=== PATIENT | female | born 1995 | race Caucasian/White ===

== ENCOUNTER 2025-04-01 13:04 | Emergency (ER) | payer MEDICAID, SELFPAY ==
[2025-04-01 13:05] VITALS: BP 135/102; PULSE 90; RESP 16; TEMP 36.8; O2SAT 98; BMI 31.3
--- NOTE | 2025-04-01 13:27 | EDS_ITS ---
HPI History of Present Illness Chief Complaint: Substance Abuse Informant: patient Onset/Context/Timing Onset: Weeks Context: Gradual Onset Timing: Continuous Current Severity: Mild Maximum Severity: Mild Associated Symptoms Associated Symptoms: Positive for vomiting* Narrative Narrative: 30-year-old female has been using something called 7 tabs. It appears to be kratom. She is been using about 15 pills a day. Stopped using 24 hours ago. She has been having restless legs, anxiety and intermittent nausea and vomiting. Loose stools. No fever. No abdominal pain. She does not want to be admitted for detox. She is looking for medication help with her symptoms. She is going to follow-up with the outpatient detox unit in [place] on Thursday. Prior similar symptoms: Yes Recent Illness/Hospitalization: No PFSH PFSH Home Medications ?Medication ?Instructions ?Recorded ?Last Taken ?Type lorazepam 1 mg tablet (Ativan) 1 mg PO BID PRN anxiety #6 tabs 04/01/25 Unknown Rx ondansetron 4 mg disintegrating 4 mg PO Q6H PRN nausea and 04/01/25 Unknown Rx tablet vomiting #7 tabs Allergy/AdvReac Type Severity Reaction Status Date / Time latex Allergy rash Verified 04/01/25 13:08 Penicillins Allergy Anaphylaxis Verified 04/01/25 13:07 diphenhydramine (From AdvReac restless Verified 04/01/25 13:08 Benadryl) legs Social History Smoking Status: Never smoker ROS ROS ED ROS Narrative Nausea. Restless legs. Diarrhea. Constitutional Constitutional ED: Denies chills or fever(s) Eyes Eyes: Denies blurry vision ENT ENT ED: Denies ear pain Cardiovascular Cardiovascular: Denies chest pain Respiratory/Chest Respiratory/Chest: Denies cough or dyspnea Gastrointestinal Gastrointestinal: Reports diarrhea, nausea and vomiting; Denies abdominal pain Genitourinary Genitourinary ED: Denies dysuria Musculoskeletal Musculoskeletal: Denies arthralgias Integumentary Denies abscess Neurologic Neurologic: Denies headache(s) Psychiatric Psychiatric: Reports anxiety Endocrine Endocrinology: Denies cold intolerance Hematologic/Lymphatic Hematologic/Lymphatic: Denies easy bleeding or lymphadenopathy Allergic/Immunologic Allergic/Immunologic ED: Denies mouth swelling, tongue swelling or urticaria EXAM Physical Exam Narrative Exam Narrative: 30-year-old female sitting upright in bed vital signs are stable afebrile. She does not look septic or toxic. She is very anxious. H EENT exam pupils round react to light. Moist mutes membranes. Multiple piercings of her tongue. Neck nontender no lymphadenopathy. Back nontender. Lungs clear to auscultation bilaterally. Heart regular rate and rhythm rate about 90 no murmur. Chest wall ribs nontender. Abdomen soft nontender. Moving all 4 extremities. Normal customer resource specialist strength. Normal dorsi plantarflexion. Normal range of motion. Normal strength and sensation. Nontender no edema. Neurologically she is awake alert. Answer questions following commands. No focal motor deficits. NIH 0. She is very anxious. Const Vital Signs: 04/01/25 13:05 Temperature 98.3 F Temperature Source Oral Pulse Rate 90 Respiratory Rate 16 Blood Pressure 135/102 H Blood Pressure Mean 113 Pulse Ox 98 Oxygen Delivery Method Room Air MDM MDM MDM Narrative Medical decision making narrative: 30-year-old female withdrawal from kratom use. Will be given Zofran for nausea and Ativan for anxiety and reassess. Repeat exam patient is doing well at 2:58 PM. Looks more comfortable feeling better. To be discharged home with Zofran for nausea. Limited Ativan for anxiety. Follow-up with outpatient detox center in [place]. History & Record Review Discussion w/independent historian: Patient Additional record(s) reviewed:: No prior records Discharge Plan Triage Chief Complaint: Substance Abuse ED Provider: Red Duran Dx/Rx/DC Orders Clinical Impression: Drug abuse, Nausea, Anxiety Instructions: ED Drug Abuse Prescriptions: New ondansetron 4 mg tablet,disintegrating 4 mg PO Q6H PRN (Reason: nausea and vomiting) Qty: 7 0RF lorazepam [Ativan] 1 mg tablet 1 mg PO BID PRN (Reason: anxiety) Qty: 6 0RF Primary Care Provider: Saurabh Veliz Jr. Referrals: NOT,DEFINED [Non-Staff, None] Activity Restrictions/Additional Instructions: Zofran as needed for nausea. Ativan as needed for anxiety. Call and follow-up with that detox center in [place] on Thursday. Print Language: Citizen Of [place] Disposition Disposition: Home, Self Care
--- OUTSIDE RECORDS SUMMARY | 2025-04-01 13:37 | XMS RPT_ITS | CCD ---
Author Organization [facility] Care Team Providers Care Technical Report Writer Name Role Phone Generic Provider MD, No Assigned Pcp Primary Car e Provider Unavailable GENERIC PROVIDER, NO ASSIGNED PCP Primary Care Unavailable GENERIC PROVIDER, NO ASSIGNED PCP Primary Care Unavailable KEY GUERRERO Attending Unavailable Allergies Allergy Classification Reported Allergen(s) Allergy Type Date of Onset Reaction(s) Facility (4 sources) diphenhydrAMINE ; Translations: [DIPHENHYDRAMIN E HCL] Drug Allergy 4 Rash, Agitation [facility] (4 sources) Latex; Translations: [LATEX] Propensity to adverse reactions 4 Rash [facility] Work Phone: (4 sources) Metoclopramide; Translations: [METOCLOPRAMIDE HCL] Drug Allergy 4 Agitation [facility] Work Phone: (4 sources) Penicillins; Translations: [PENICILLINS] Propensity to adverse reactions 4 Anaphylaxis, Swelling [facility] Work Phone: Medications Current Medications Medication Drug Class(es) Dates Sig (Normalized) Sig (Original) acetaminophen 325 mg / oxyCODONE hydrochloride 5 mg oral tablet (2 sources) Opioid Agonist Start: 02-26-2024 take 1 tablet by mouth every six hours for pain oxyCODONE-acetami nophen (Percocet) 5-325 mg tablet Indications: Cervical strain, acute, initial encounter Take 1 tablet by mouth every 6 hours if needed for severe pain (7 - 10). 12 tablet 02/26/2024 Active Completed/Discontinued Medications Medication Drug Class(es) Dates Sig (Normalized) Sig (Original) 1 ml HYDROmorphone hydrochloride 1 mg/ml cartridge (1 source) Opioid Agonist Start: 02-25-2024 End: 02-25-2024 inject 1 mg by intramuscular injection once 1 mg, intramuscular, Once, On Brooke 02/25/24 at 2310, For 1 dose 1 ml ketorolac tromethamine 30 mg/ml injection (1 source) Nonsteroidal Anti-inflammatory Drug, Cyclooxygenase Inhibitor Start: 02-15-2024 End: 02-15-2024 15 mg, intravenous, Once, On Thu02/15/24 at 1935, For 1 dose ondansetron 4 mg disintegrating oral tablet (1 source) Serotonin-3 Receptor Antagonist Start: 02-15-2024 End: 02-15-2024 take 4 mg by mouth once 4 mg, oral, Once, On Thu02/15/24 at 1910, For 1 dose 2 ml orphenadrine citrate 30 mg/ml injection (1 source) Muscle Relaxant Start: 02-25-2024 End: 02-25-2024 inject 60 mg by intramuscular injection once 60 mg, intramuscular, Once, On Brooke 02/25/24 at 2310, For 1 dose Problems Problem Classification Problem Date Documented Da te Episodic/Chronic Headache; including migraine (1 source) Headache; Translations: [Nonintractable headache, unspecified chronicity pattern, unspecified headache type] 02-15-2024 Episodic Headache; including migraine (2 sources) Headache; including migraine; Translations: [Headache, unspecified] Onset: 02-15-2024 Sprains and strains (3 sources) Strain of neck muscle; Translations: [Strain of muscle, fascia and tendon at neck level, initial encounter] Onset: 02-25-2024 02-26-2024 Episodic Results Test Name Value Interpretation Reference Range Facility XR Cervical spine 2 or 3 Vie wson 02-26-2024 No evidence of traumatic subluxation or compression deformity. Faint ossifications along the lower vertebral bodies could be related to early degenerative changes or remote trauma. Clinical correlation suggested. MACRO: None Signed by: Amita Nugent 02/26/2024 12:11 AM Dictation workstation: [id number] [facility] Interpreted By: Amita Nugent, STUDY: XR CERVICAL SPINE 2-3 VIEWS; ; 02/25/2024 11:24 pm INDICATION: Signs/Symptoms:Right- sided neck pain. COMPARISON: None. ACCESSION NUMBER(S): [id number] ORDERING CLINICIAN: KEY GUERRERO FINDINGS: Three views of the cervical spine Straightening of the cervical spine. No evidence of traumatic subluxation identified. Punctate ossification along the anterior superior C6 and C7 vertebral bodies which are indeterminate. No significant prevertebral soft tissue swelling. Airways appear patent. Lung apices appear clear. [facility] Amita Nugent D O - 02/26/2024 Interpreted By: Amita Nugent, STUDY: XR CERVICAL SPINE 2-3 VIEWS; ; 02/25/2024 11:24 pm INDICATION: Signs/Symptoms:Right- sided neck pain. COMPARISON: None. ACCESSION NUMBER(S): [id number] ORDERING CLINICIAN: KEY GUERRERO FINDINGS: Three views of the cervical spine Straightening of the cervical spine. No evidence of traumatic subluxation identified. Punctate ossification along the anterior superior C6 and C7 vertebral bodies which are indeterminate. No significant prevertebral soft tissue swelling. Airways appear patent. Lung apices appear clear. IMPRESSION: No evidence of traumatic subluxation or compression deformity. Faint ossifications along the lower vertebral bodies could be related to early degenerative changes or remote trauma. Clinical correlation suggested. MACRO: None Signed by: Amita Nugent 02/26/2024 12:11 AM Dictation workstation: [id number] [facility] Work Phone: XR Cervical spine 2 or 3 Vie wsOrdered By: Amita Nugent on 02-26-2024 [facility] Work Phone: XR CERVICAL SPINE 2-3 VIEWSo n 02-25-2024 XR CERVICAL SPINE 2-3 VIEWS Interpreted By: Amita Nugent, STUDY: XR CERVICAL SPINE 2-3 VIEWS; ; 02/25/2024 11:24 pm INDICATION: Signs/Symptoms:Right- sided neck pain. COMPARISON: None. ACCESSION NUMBER(S): [id number] ORDERING CLINICIAN: KEY GUERRERO FINDINGS: Three views of the cervical spine Straightening of the cervical spine. No evidence of traumatic subluxation identified. Punctate ossification along the anterior superior C6 and C7 vertebral bodies which are indeterminate. No significant prevertebral soft tissue swelling. Airways appear patent. Lung apices appear clear. IMPRESSION: No evidence of traumatic subluxation or compression deformity. Faint ossifications along the lower vertebral bodies could be related to early degenerative changes or remote trauma. Clinical correlation suggested. MACRO: None Signed by: Amita Nugent 02/26/2024 12:11 AM Dictation workstation: [id number] Normal [facility] XR Cervical spine 2 or 3 Vie wson 02-25-2024 Radiology Study observation (narrative) [facility] Work Phone: CBC panel Auto (Bld)on 02-14 Erythrocyte distribution width (RBC) [Ratio] 12.4 % 11.5 - 14.5 % [facility] Hematocrit (Bld) [Volume fraction] 40.9 % 36.0 - 46.0 % [facility] Hemoglobin (Bld) [Mass/Vol] 14.2 g/dL 12.0 - 16.0 g/dL [facility] Interpretation and review of laboratory results Normal [facility] MCH (RBC) [Entitic mass] 31.6 pg 26.0 - 34.0 pg [facility] MCHC (RBC) [Mass/Vol] 34.7 g/dL 32.0 - 36.0 g/dL [facility] MCV (RBC) [Entitic vol] 91 fL 80 - 100 fL [facility] Nucleated RBC/100 WBC (Bld) [Ratio] 0 % [facility] Platelets (Bld) [#/Vol] 261 10*3/uL [facility] RBC (Bld) [#/Vol] 4.49 10*6/uL [facility] WBC (Bld) [#/Vol] 10.2 10*3/uL [facility] Erythrocyte distribution width (RBC) [Ratio] 12.4 % Normal 11.5-14.5 [facility] Comment on above: Performed By: #### 5 8410-2 #### HILLMAN ROLAND ([id number]) [facility] ([facility]) [address] [place] [address] Hematocrit (Bld) [Volume fraction] 40.9 % Normal 36.0-46.0 [facility] Comment on above: Performed By: #### 5 8410-2 #### RAFY WATKINS ([id number]) [facility] ([facility]) [address] [place] [address] 33858 Hemoglobin (Bld) [Mass/Vol] 14.2 g/dL Normal 12.0-16.0 [facility] Comment on above: Performed By: #### 5 8410-2 #### RAFY WATKINS ([id number]) [facility] ([facility]) [address] [place] [address] 07368 MCH (RBC) [Entitic mass] 31.6 pg Normal 26.0-34.0 [facility] Comment on above: Performed By: #### 5 8410-2 #### RAFY WATKINS ([id number]) [facility] ([facility]) [address] [place] [address] 91857 MCHC (RBC) [Mass/Vol] 34.7 g/dL Normal 32.0-36.0 [facility] Comment on above: Performed By: #### 5 8410-2 #### RAFY WATKINS ([id number]) [facility] ([facility]) [address] [place] [address] 31462 MCV (RBC) [Entitic vol] 91 fL Normal 80-100 [facility] Comment on above: Performed By: #### 5 8410-2 #### RAFY WATKINS ([id number]) [facility] ([facility]) [address] [place] [address] 06325 Nucleated RBC/100 WBC (Bld) [Ratio] 0.0 /100 WBCs Normal 0.0-0.0 [facility] Comment on above: Performed By: #### 5 8410-2 #### RAFY WATKINS ([id number]) [facility] ([facility]) [address] [place] [address] 31072 Platelets (Bld) [#/Vol] 261 x10*3/uL Normal 150-450 [facility] Comment on above: Performed By: #### 5 8410-2 #### RAFY WATKINS ([id number]) [facility] ([facility]) [facility] [place] [address] RBC (Bld) [#/Vol] 4.49 x10*6/uL Normal 4.00-5.[address] [facility] Comment on above: Performed By: #### 5 8410-2 #### RAFY WATKINS ([id number]) [facility] ([facility]) [address] [place] [address] 68200 WBC (Bld) [#/Vol] 10.2 x10*3/uL Normal 4.4-11.[address] [facility] Comment on above: Performed By: #### 5 8410-2 #### RAFY WATKINS ([id number]) [facility] ([facility]) [address] [place], [place] [id number] Comprehensive metabolic 2000 panelon 02-15-2024 Albumin BCP dye [Mass/Vol] 4.3 g/dL 3.4 - 5.0 g/dL [facility] ALP [Catalytic activity/Vol] 63 U/L 33 - 110 U/L [facility] ALT With P-5'-P [Catalytic activity/Vol] 17 U/L 7 - 45 U/L [facility] Comment on above: Patients treated wit h Sulfasalazine may generate falsely decreased results for ALT. Anion gap [Moles/Vol] 13 mmol/L 10 - 20 mmol/L [facility] AST With P-5'-P [Catalytic activity/Vol] 14 U/L 9 - 39 U/L [facility] Bilirubin [Mass/Vol] 0.4 mg/dL 0.0 - 1 .2 mg/dL [facility] Calcium [Mass/Vol] 9.6 mg/dL 8.6 - 10. 3 mg/dL [facility] Chloride [Moles/Vol] 101 mmol/L 98 - 10 7 mmol/L [facility] CO2 [Moles/Vol] 28 mmol/L 21 - 32 mmol/L [facility] Creatinine [Mass/Vol] 0.77 mg/dL 0.50 - 1.05 mg/dL [facility] eGFR - PINF [facility] Comment on above: Calculations of maki mated GFR are performed using the 2020 CKD-EPI Study Refit equation without the race variable for the IDMS-Traceable creatinine methods. https://jasn.asnjournals.org/content//ASN.6442494 988 Glucose [Mass/Vol] 97 mg/dL 74 - 99 mg/dL [facility] Interpretation and review of laboratory results Normal [facility] Potassium [Moles/Vol] 3.6 mmol/L 3.5 - 5.3 mmol/L [facility] Protein [Mass/Vol] 6.9 g/dL 6.4 - 8.2 g/dL Un [facility] Sodium [Moles/Vol] 138 mmol/L 136 - 145 mmol/L [facility] Urea nitrogen [Mass/Vol] 16 mg/dL 6 - 23 mg/dL [facility] Albumin BCP dye [Mass/Vol] 4.3 g/dL Normal 3.4-5.0 [facility] Comment on above: Performed By: #### 2 4323-8 #### RAFY WATKINS ([id number]) [facility] ([facility]) [address] [place] [address]141 ALP [Catalytic activity/Vol] 63 U/L Normal 33-110 [facility] Comment on above: Performed By: #### 2 4323-8 #### RAFY WATKINS ([id number]) [facility] ([facility]) [address] [place] [address] 25785 ALT With P-5'-P [Catalytic activity/Vol] 17 U/L Normal 7-45 [facility] Comment on above: Result Comment: Laura ents treated with Sulfasalazine may generate falsely decreased results for ALT. Performed By: #### 2 4323-8 #### RAFY WATKINS ([id number]) [facility] ([facility]) [address] [place] [address] 10768 Anion gap [Moles/Vol] 13 mmol/L Normal 10-20 [facility] Comment on above: Performed By: #### 2 4323-8 #### RAFY WATKINS ([id number]) [facility] ([facility]) [address] [place] [address] AST With P-5'-P [Catalytic activity/Vol] 14 U/L Normal 9-39 [facility] Comment on above: Performed By: #### 2 4323-8 #### RAFY WATKINS ([id number]) [facility] ([facility]) [address] [place] [address] Bilirubin [Mass/Vol] 0.4 mg/dL Normal 0.0-1.[address] [facility] Comment on above: Performed By: #### 2 432-8 #### RAFY WATKINS ([id number]) [facility] ([facility]) [address] [place] [address] Calcium [Mass/Vol] 9.6 mg/dL Normal 8.6-10.3 [facility] Comment on above: Performed By: #### 2 432-8 #### RAFY WATKINS ([id number]) [facility] ([facility]) [address] [place] [address] Chloride [Moles/Vol] 101 mmol/L Normal 98-[address] [facility] Comment on above: Performed By: #### 2 4323-8 #### RAFY WATKINS ([id number]) [facility] ([facility]) [address] [place] [address] CO2 [Moles/Vol] 28 mmol/L Normal 21-32 [facility] Comment on above: Performed By: #### 2 4323-8 #### RAFY WATKINS ([id number]) [facility] ([facility]) [address] [place] [address] Creatinine [Mass/Vol] 0.77 mg/dL Normal 0.50-1.05 [facility] Comment on above: Performed By: #### 2 4323-8 #### RAFY WATKINS ([id number]) [facility] ([facility]) [address] [place] [address] GFR/1.73 sq M.predicted MDRD (S/P/Bld) [Vol rate/Area] mL/min/{1.73_m2} Normal >60 [facility] Comment on above: Result Comment: Calc ulations of estimated GFR are performed using the 2020 CKD-EPI Study Refit equation without the race variable for the IDMS-Traceable creatinine methods. https://jasn.asnjournals.org/content/early//ASN.8015875 988 Performed By: #### 2 4323-8 #### RAFY WATKINS ([id number]) [facility] ([facility]) [address] [place] [address]116 Glucose [Mass/Vol] 97 mg/dL Normal 74-99 [facility] Comment on above: Performed By: #### 2 4323-8 #### RAFY WATKINS ([id number]) [facility] ([facility]) [address] [place] [address] 09069 Potassium [Moles/Vol] 3.6 mmol/L Normal 3.5-5.3 [facility] Comment on above: Performed By: #### 2 4323-8 #### RAFY WATKINS ([id number]) [facility] ([facility]) [address] [place] [address] 01092 Protein [Mass/Vol] 6.9 g/dL Normal 6.4-8.2 [facility] Comment on above: Performed By: #### 2 4323-8 #### RAFY WATKINS ([id number]) [facility] ([facility]) [address] [place] [address]2310 Sodium [Moles/Vol] 138 mmol/L Normal 136-145 [facility] Comment on above: Performed By: #### 2 4323-8 #### RAFY WATKINS ([id number]) [facility] ([facility]) [address] [place] [address] 35688 Urea nitrogen [Mass/Vol] 16 mg/dL Normal 6-23 [facility] Comment on above: Performed By: #### 2 4323-8 #### RAFY WATKINS ([id number]) [facility] ([facility]) [address] [place] [address] FLUAV and FLUBV RNA MELISSA+prob e Nom (Unsp spec)on 02-15-2024 FLUAV RNA MELISSA+probe Ql (Resp) Not detected Not Detected [facility] FLUBV RNA MELISSA+probe Ql (Resp) Not detected Not Detected [facility] This assay is an in vitro diagnostic multiplex nucleic acid amplification test for the detection and discrimination of Influenza A & B from nasopharyngeal specimens, and has been validated for use at [facility]. Negative results do not preclude Influenza A/B infections, and should not be used as the sole basis for diagnosis, treatment, or other management decisions. If Influenza A/B and RSV PCR results are negative, testing for Parainfluenza virus, Adenovirus and Metapneumovirus is routinely performed for [facility] pediatric oncology and intensive care inpatients, and is available on other patients by placing an add-on request. [facility] FLUAV RNA MELISSA+probe Ql (Resp) Not detected Normal Not Detected [facility] Comment on above: Order Comment: This assay is an in vitro diagnostic multiplex nucleic acid amplification test for the detection and discrimination of Influenza A & B from nasopharyngeal specimens, and has been validated for use at [facility]. Negative results do not preclude Influenza A/B infections, and should not be used as the sole basis for diagnosis, treatment, or other management decisions. If Influenza A/B and RSV PCR results are negative, testing for Parainfluenza virus, Adenovirus and Metapneumovirus is routinely performed for [facility] pediatric oncology and intensive care inpatients, and is available on other patients by placing an add-on request. Performed By: #### 4 8509-4 #### HILLMAN ROLAND ([id number]) [facility] ([facility]) [address] [place] [address] FLUBV RNA MELISSA+probe Ql (Resp) Not detected Normal Not Detected [facility] Comment on above: Order Comment: This assay is an in vitro diagnostic multiplex nucleic acid amplification test for the detection and discrimination of Influenza A & B from nasopharyngeal specimens, and has been validated for use at [facility]. Negative results do not preclude Influenza A/B infections, and should not be used as the sole basis for diagnosis, treatment, or other management decisions. If Influenza A/B and RSV PCR results are negative, testing for Parainfluenza virus, Adenovirus and Metapneumovirus is routinely performed for [facility] pediatric oncology and intensive care inpatients, and is available on other patients by placing an add-on request. Performed By: #### 4 8509-4 #### RAFY WATKINS ([id number]) [facility] ([facility]) [address] [place] [address] No Panel Informationon 02-14 Interpretation and review of laboratory results Normal [facility] SARS coronavirus 2 RNAon SARS-CoV-2 (COVID-19) RNA MELISSA+probe Ql (Resp) Not detected Normal Not Detected [facility] Comment on above: Order Comment: This assay has received FDA Emergency Use Authorization (EUA) and is only authorized for the duration of time that circumstances exist to justify the authorization of the emergency use of in vitro diagnostic tests for the detection of SARS-CoV-2 virus and/or diagnosis of COVID-19 infection under section 564(b)(1) of the Act, 21 U.S.C. 360bbb-3(b)(1). This assay is an in vitro diagnostic nucleic acid amplification test for the qualitative detection of SARS-CoV-2 from nasopharyngeal specimens and has been validated for use at [facility]. Negative results do not preclude COVID-19 infections and should not be used as the sole basis for diagnosis, treatment, or other management decisions. Performed By: #### 9 4500-6 #### RAFY WATKINS ([id number]) [facility] ([facility]) [address] [place] [address] SARS-CoV-2 (COVID-19) RNA NA A+probe Ql (Resp)on 02-15-2024 This assay has received FDA Emergency Use Authorization (EUA) and is only authorized for the duration of time that circumstances exist to justify the authorization of the emergency use of in vitro diagnostic tests for the detection of SARS-CoV-2 virus and/or diagnosis of COVID-19 infection under section 564(b)(1) of the Act, 21 U.S.C. 360bbb-3(b)(1). This assay is an in vitro diagnostic nucleic acid amplification test for the qualitative detection of SARS-CoV-2 from nasopharyngeal specimens and has been validated for use at [facility]. Negative results do not preclude COVID-19 infections and should not be used as the sole basis for diagnosis, treatment, or other management decisions. [facility] Sars-CoV-2 PCRon 02-15-2024 SARS-CoV-2 (COVID-19) RNA MELISSA+probe Ql (Resp) Not detected Not Detected [facility] Vital Signs Date Time Vital Sign Value Performing Clinician Facility 03-17-2024 13:47-0500 Respiratory rate 16 /min Donna Fritztravon SIMON-PROSTHETIC TECHNICIAN Work Phone: [facility] 02-26-2024 00:22-0500 Diastolic blood pressure 72 mm[Hg] Key Guerrero MD Work Phone: [facility] 02-26-2024 00:22-0500 Heart rate 80 /min Key Guerrero MD Work Phone: [facility] 02-26-2024 00:22-0500 Respiratory rate 16 /min Key Guerrero MD Work Phone: [facility] 02-26-2024 00:22-0500 SaO2% (BldA) [Mass fraction] 97 % Key Guerrero MD Work Phone: [facility] 02-26-2024 00:22-0500 Systolic blood pressure 169 mm[Hg] Key Guerrero MD Work Phone: [facility] 02-25-2024 22:31-0500 Body height 170.2 cm Key Guerrero MD Work Phone: [facility] 02-25-2024 22:31-0500 Body mass index (BMI) [Ratio] 24.28 kg/m2 Key Guerrero MD Work Phone: [facility] 02-25-2024 22:31-0500 Body temperature 96.8 [degF] Key Guerrero MD Work Phone: [facility] 02-25-2024 22:31-0500 Body weight 70.31 kg Key Guerrero MD Work Phone: [facility] 02-15-2024 20:26-0500 Diastolic blood pressure 75 mm[Hg] No Generic Provider [facility] 02-15-2024 20:26-0500 Heart rate 94 /min No Generic Provider [facility] 02-15-2024 20:26-0500 Respiratory rate 18 /min No Generic Provider [facility] 02-15-2024 20:26-0500 SaO2% (BldA) [Mass fraction] 100 % No Generic Provider [facility] 02-15-2024 20:26-0500 Systolic blood pressure 130 mm[Hg] No Generic Provider [facility] 02-15-2024 19:00-0500 Body temperature 99.61 [degF] No Generic Provider [facility] 02-15-2024 18:36-0500 Body height 170.2 cm No Generic Provider [facility] 02-15-2024 18:36-0500 Body mass index (BMI) [Ratio] 24.9 kg/m2 No Generic Provider [facility] 02-15-2024 18:36-0500 Body weight 72.12 kg No Generic Provider [facility] Encounters Encounter Date Encounter Type Care Provider Facility Start: 03-17-2024 End: 03-17-2024 Erroneous Encounter Donna Hu MULTIPLE RESAW OPERATOR-PROSTHETIC TECHNICIAN Work Phone: [facility] Comment on above: Arrived Start: 02-25-2024 End: 02-26-2024 Emergency department patient visit Key Guerrero MD Work Phone: [facility] Comment on above: Cervical strain, acu te, initial encounter (Primary Dx) Start: 02-15-2024 End: 02-15-2024 Emergency department patient visit NO ASSIGNED PCP GENERIC PROVIDER [facility] Comment on above: Nonintractable heada luis, unspecified chronicity pattern, unspecified headache type (Primary Dx) Procedures Date Procedure Procedure Detail Performing Clinician Start: 02-25-2024 Radex spine cervical 2 or 3 views Key Guerrero MD Work Phone: Start: 02-15-2024 Comprehensive metabo lic panel Tana Dillon PA-C Work Phone: Start: 02-15-2024 Influenza virus A an d B RNA [Identifier] in Unspecified specimen by MELISSA with probe detection Tana Dillon PA-C Work Phone: Start: 02-15-2024 SARS-CoV-2 (COVID-19 ) RNA [Presence] in Respiratory specimen by MELISSA with probe detection Tana Dillon PA-C Work Phone: Plan of Treatment Date Care Activity Detail Author Start: 2044 Zoster Vaccines (1 of 2) Zoster Vaccines (1 of 2) [facility] Start: 12-06-2023 COVID-19 Vaccine ( season) COVID-19 Vaccine ( season) [facility] Start: 12-06-2023 Influenza vaccination Influenza Vaccine (#1) [facility] Start: 2016 DTaP/Tdap/Td Vaccines (1 - Tdap) DTaP/Tdap/Td Vaccines (1 - Tdap) [facility] Start: 2013 Hepatitis B Vaccines (1 of 3 - 19+ 3-dose series) Hepatitis B Vaccines (1 of 3 - 19+ 3-dose series) [facility] Start: 2012 Hepatitis C screening Hepatitis C Screening [facility] Start: 2007 Varicella vaccination Varicella Vaccines (1 of 2 - 13+ 2-dose series) [facility] Start: 2000 Pneumococcal Vaccine: Pediatrics (0 to 5 Years) and At-Risk Patients (6 to 64 Years) (1 of 2 - PCV) Pneumococcal Vaccine: Pediatrics (0 to 5 Years) and At-Risk Patients (6 to 64 Years) (1 of 2 - PCV) [facility] Start: 1995 MMR Vaccines (1 of 1 - Standard series) MMR Vaccines (1 of 1 - Standard series) [facility] Start: 1994 HIV screening HIV Screening [facility] Start: 1994 Lipid panel Lipid Panel [facility] Start: 1994 Yearly Adult Physical Yearly Adult Physical [facility] Payers Date Payer Category Payer Medicaid MEDICAID NON [place] [id number] Social History Date Type Detail Facility Start: 02-15-2024 [facility] Work Phone: History of tobacco use Cigarette Smoker [facility] Work Phone: Start: 02-15-2024 Tobacco use and exposure Smokeless tobacco non-user [facility] Work Phone: Start: 02-15-2024 End: 02-25-2024 Alcoholic beverage intake Ex-drinker (finding) [facility] Work Phone: Start: 1994 Sex assigned at Not on file [facility] Work Phone: Start: 02-15-2024 End: 02-25-2024 Gender identity Not on file [facility] Work Phone: Start: 02-05-2024 End: 03-17-2024 Exposure to SARS-CoV-2 (event) Not sure [facility] Start: 02-15-2024 End: 02-25-2024 History of Social function [facility] Work Phone: History of Present illness Narrative 03-17-2024 JAX Martinez - 03/17/2024 2:15 PM EST Note Date & Type Note Facility 03-17-2024 History of Present illness Narrative Patient presented to Urgent Care for evaluation of new onset neck pain/back pain - specifically denied any history of prior neck pain when discussed at front office spec with provider. During triage, she stated to Twisting Frame Operator that Dr. Guerrero told me to come here for a refill on my percocet. During/after triage, while waiting for provider, patient left, stating, I'm just going to go to the ER. documented in this encounter [facility] Work Phone: Hospital Discharge instructions 02-26-2024 Discharge InstructionsAttachments Note Date & Type Note Facility 02-26-2024 Hospital Discharg e instructions Key Guerrero MD - 02/26/2024 12:18 AM EST You have been given a handout with the contact information for the local primary care physicians. The following attachments cannot be sent through Care Everywhere.Cervical Muscle Strain Discharge Instructions (Amharic)documented in this encounter [facility] Work Phone: Emergency department Note 02-25-2024 Key Guerrero MD - 02/25/2024 10:26 PM EST Note Date & Type Note Facility 02-25-2024 Emergency department Note Images from the original note were not included. 28-year-old female presents with a chief complaint of right-sided neck pain starting at the angle of the scapula going to the show the neck creating a right-sided headache. Reports increased pain and inability to rotate head to the left. She just moved up here from [place] about a month ago and has been doing a lot of lifting. Denies any fall or trauma. Review of Systems Physical Exam Vitals and nursing note reviewed. Constitutional: General: She is not in acute distress. Appearance: She is well-developed. HENT: Head: Normocephalic and atraumatic. Eyes: Conjunctiva/sclera: Conjunctivae normal. Neck: Comments: Tenderness right cervical paraspinals. Decreased ability to perform cervical rotation to the left. Cardiovascular: Rate and Rhythm: Normal rate and regular rhythm. Heart sounds: No murmur heard. Pulmonary: Effort: Pulmonary effort is normal. No respiratory distress. Breath sounds: Normal breath sounds. Abdominal: Palpations: Abdomen is soft. Tenderness: There is no abdominal tenderness. Musculoskeletal: General: No swelling. Cervical back: Neck supple. Skin: General: Skin is warm and dry. Capillary Refill: Capillary refill takes less than 2 seconds. Neurological: Mental Status: She is alert. Psychiatric: Mood and Affect: Mood normal. Labs Reviewed - No data to display XR cervical spine 2-3 views Final Result No evidence of traumatic subluxation or compression deformity. Faint ossifications along the lower vertebral bodies could be related to early degenerative changes or remote trauma. Clinical correlation suggested. MACRO: None Signed by: Amita Nugent 02/26/2024 12:11 AM Dictation workstation: [id number] Procedures Medical Decision Making 28-year-old female presents with a chief complaint of right-sided neck pain starting at the angle of the scapula going to the show the neck creating a right-sided headache. Reports increased pain and inability to rotate head to the left. She just moved up here from [place] about a month ago and has been doing a lot of lifting. Denies any fall or trauma. X-rays of the C-spine were negative for acute findings. She received 1 mg IM Dilaudid and 60 mg IM Norflex and is feeling a little bit better. Will prescribe short course of Percocet at discharge. Diagnoses as of 02/26/2419 Cervical strain, acute, initial encounter Key Guerrero MD 02/26/2419 documented in this encounter [facility] Work Phone: Physician Emergency department Note 02-25-2024 Key Guerrero MD - 02/25/2024 10:26 PM EST Note Date & Type Note Facility 02-25-2024 Physician Emergency department Note Images from the original note were not included. 28-year-old female presents with a chief complaint of right-sided neck pain starting at the angle of the scapula going to the show the neck creating a right-sided headache. Reports increased pain and inability to rotate head to the left. She just moved up here from [place] about a month ago and has been doing a lot of lifting. Denies any fall or trauma. Review of Systems Physical Exam Vitals and nursing note reviewed. Constitutional: General: She is not in acute distress. Appearance: She is well-developed. HENT: Head: Normocephalic and atraumatic. Eyes: Conjunctiva/sclera: Conjunctivae normal. Neck: Comments: Tenderness right cervical paraspinals. Decreased ability to perform cervical rotation to the left. Cardiovascular: Rate and Rhythm: Normal rate and regular rhythm. Heart sounds: No murmur heard. Pulmonary: Effort: Pulmonary effort is normal. No respiratory distress. Breath sounds: Normal breath sounds. Abdominal: Palpations: Abdomen is soft. Tenderness: There is no abdominal tenderness. Musculoskeletal: General: No swelling. Cervical back: Neck supple. Skin: General: Skin is warm and dry. Capillary Refill: Capillary refill takes less than 2 seconds. Neurological: Mental Status: She is alert. Psychiatric: Mood and Affect: Mood normal. Labs Reviewed - No data to display XR cervical spine 2-3 views Final Result No evidence of traumatic subluxation or compression deformity. Faint ossifications along the lower vertebral bodies could be related to early degenerative changes or remote trauma. Clinical correlation suggested. MACRO: None Signed by: Amita Nugent 02/26/2024 12:11 AM Dictation workstation: [id number] Procedures Medical Decision Making 28-year-old female presents with a chief complaint of right-sided neck pain starting at the angle of the scapula going to the show the neck creating a right-sided headache. Reports increased pain and inability to rotate head to the left. She just moved up here from [place] about a month ago and has been doing a lot of lifting. Denies any fall or trauma. X-rays of the C-spine were negative for acute findings. She received 1 mg IM Dilaudid and 60 mg IM Norflex and is feeling a little bit better. Will prescribe short course of Percocet at discharge. Diagnoses as of 02/26/2419 Cervical strain, acute, initial encounter Key Guerrero MD 02/26/2419 [facility] Work Phone: Evaluation note Note Date & Type Note Facility Evaluation note Diagnosis Nonintractable headache, unspecified chronicity pattern, unspecified headache type- Primary documented in this encounter [facility] Work Phone: Evaluation note Note Date & Type Note Facility Evaluation note Diagnosis Cervical strain, acute, initial encounter- Primary documented in this encounter [facility] Work Phone: Hospital Discharge instructions Attachments Note Date & Type Note Facility Hospital Discharge instructions The following attachments cannot be sent through Care Everywhere.Headache, Adult ED (Amharic)documented in this encounter [facility] Work Phone: Summary Purpose Family History No Family History Records Found Advance Directives No Advanced Directives Records Found Additional Source Comments Reason for Visit (unrecogniz ed section and content) Reason Comments Headache To ED per wheelchair c/o SCHWARTZ and low back pain, body aches, fever and nausea. She states that she took a muscle relaxer about 3 hours ago and has been taking Advil. Motrin, and Tylenol. Reason Comments Torticollis Pt states for the st week she has been having neck pain stemming from the trapezius region going into her head causing a headache. Pt has hx of chronic back pain and migraines. Pt denies injury. Pt was seen here 10 days ago for similar symptoms and was prescribed naproxen (last dose today 1400) and tramadol (last dose 1600) without relief. Reason Comments Error (VOID this visit) Scheduled Active and Recently Administ ered Medications (unrecognized section and content) Medication Order 02/13/2024 02/14/2024 02/15/2024 acetaminophen (Tylenol) tablet 650 mg 650 mg, oral, Once, On Thu02/15/24 at 1910, For 1 dose, If ordered PRN for pain, nurse is permitted to administer this medication for higher pain scores based on patient preference? Yes 1927 (Not Given - Pr ovider: Tamica Freire RN - Reason: Patient/family refused) ketorolac (Toradol) injection 15 mg (COMPLETED) 15 mg, intravenous, Once, On 11/11/24 at 1935, For 1 dose 1944 (Given - Provid er: Tamica Freire RN) ondansetron ODT (Zofran-ODT) disintegrating tablet 4 mg (COMPLETED) 4 mg, oral, Once, On 02/15/24 at 1910, For 1 dose 1923 (Given - Provid er: Tamica Freire RN) Scheduled Medication Order 02/24/2024 02/25/2024 02/26/2024 HYDROmorphone (Dilaudid) injection 1 mg (COMPLETED) 1 mg, intramuscular, Once, On Brooke 02/25/24 at 2310, For 1 dose 2313 (Given - Provider: Timothy Chakraborty RN) orphenadrine (Norflex) injection 60 mg (COMPLETED) 60 mg, intramuscular, Once, On Brooke 02/25/24 at 2310, For 1 dose 2313 (Given - Provider: Timothy Chakraborty RN) Care Teams (unrecognized sec tion and content) Technical Report Writer Relationship Specialty Start Date End Date Generic Provider, [place] [address] PCP - General Senior Sharepoint Architect 02/15/24 Technical Report Writer Relationship Specialty Start Date End Date Generic Provider, No [place] [address] PCP - General Senior Sharepoint Architect 02/15/24 Technical Report Writer Relationship Specialty Start Date End Date Generic Provider, [place] [address] PCP - General Senior Sharepoint Architect 02/15/24 INFORMATION SOURCE (unrecogn ized section and content) DATE CREATED AUTHOR 03/20/2024 [facility] FOR RECORDS PERTAINING TO PATIENTS WHO ARE OR HAVE BEEN ENROLLED IN A CHEMICAL DEPENDENCY/SUBSTANCEABUSE PROGRAM, SOME INFORMATION MAY BE OMITTED. This clinical summary was aggregated from multiple sources. Caution should be exercised in using it in the provision of clinical care. This summary normalizes information from multiple sources, and as a consequence, information in this document may materially change the coding, format and clinical context of patient data. In addition, data may be omitted in some cases. CLINICAL DECISIONS SHOULD BE BASED ON THE PRIMARY CLINICAL RECORDS. [employer] [facility]. provides no warranty or guarantee of the accuracy or completeness of information in this document.
[2025-04-01 15:07] VITALS: BP 121/79; PULSE 69; RESP 15; TEMP 36.9; O2SAT 99
== END 2025-04-01 15:16 | disposition home or self-care (01) ==
PROVIDERS: Emergency Provider Emergency Medicine; PCP Internal Medicine; Visit Provider Emergency Medicine
DX: F19.19 Other psychoactive substance abuse with unspecified psychoactive substance-induced disorder (principal); F41.9 Anxiety disorder, unspecified; R11.0 Nausea
CPT/HCPCS: 99283